=== PATIENT | male | born 1950 | race Caucasian/White ===

== ENCOUNTER 2018-06-04 19:07 | Emergency (ER) | payer BC, MEDICARE ==
[2018-06-04 19:42] LABS: Hemoglobin 17.5 g/dL (14.0-18.0); Mean Corpuscular HGB CONC 33.2 g/dL (32.0-36.0); Mean Corpuscular Hemoglobin 30.1 pg (27.0-31.0); Mean Corpuscular Volume 90.5 fL (78.0-98.0); Mean Platelet Volume 7.7 fL (7.4-10.4); Platelet Count 194 thou/uL (130-400); RBC Distribution Width 12.1 % (11.5-14.5); Red Blood Cell (RBC) Count 5.84 mill/uL (4.70-6.10); White Blood Cell (WBC) Count 12.6 thou/uL (4.8-10.8)
[2018-06-04 19:45] LABS: Bilirubin Small (Negative); Blood, Urine Trace (Negative); Clarity CLEAR (Clear); Glucose, Urine (Dipstick) Negative (Negative); Leukocyte Trace (Negative); Nitrite Negative (Negative); Protein, Urine (Dipstick) 100 mg/dL (Neg-Trace); Specific Gravity, Urine 1.035 (1.002-1.036); Urobilinogen 0.2 mg/dL (0.2-1.0); pH, Urine 5.5 (5.0-9.0)
[2018-06-04 19:47] LABS: Bacteria/HPF None Seen HPF (None Seen); RBC/HPF 0-3 HPF (0-3); Squamous Epithelial 0-3 HPF (0-3); WBC/HPF 0-3 HPF (0-3)
[2018-06-04 19:48] LABS: Pathc Cast-AUWi Flag 2.61 (0-2.49)
[2018-06-04 19:57] LABS: Hyaline Casts/LPF 0-3 HYALINE CAST LPF (0-3 Hyaline); Manual Microscopic Reviewed? No Path Casts Seen
[2018-06-04 20:00] LABS: ALT (SGPT) 20 U/L (8-55); AST (SGOT) 18 U/L (5-34); Albumin 4.8 g/dL (3.4-4.8); Alkaline Phosphatase 76 U/L (40-150); Anion Gap 16 mmol/L (10-20); BUN (Urea Nitrogen) 19 mg/dL (8.4-25.7); Bilirubin, Total 1.7 mg/dL (0.2-1.2); Calc. Creatinine Clearance 0 mL/min (70-130); Calcium 9.5 mg/dL (7.8-10.44); Carbon Dioxide 22 mmol/L (23-31); Chloride 103 mmol/L (98-107); Estimated GFR-MDRD 52; Globulin 3.4 g/dL (2.4-3.5); Glucose 114 mg/dL (80-115); Protein, Total 8.2 g/dL (5.8-8.1); Sodium 138 mmol/L (136-145)
[2018-06-04 20:02] LABS: MDiff Complete? YES
[2018-06-04 20:03] LABS: Band 27 % (5-11); Lymphocytes 8 % (21-51); Monocytes 3 % (0-10); Neutrophil 62 % (42-75); PLT Morphology Comment Appears Adequate
[2018-06-04] MEDS ORDERED: Ondansetron HCl/PF 4 MG/2 ML Vial ONE (21:53)
[2018-06-04] MEDS ORDERED: Famotidine/PF 20 mg/2ml Vial ONE (21:53)
[2018-06-04] MEDS ORDERED: Metoclopramide HCl 10 MG/2 ML VIAL ONE (21:53)
--- NOTE | 2018-06-04 22:14 | RAD ---
AP VIEW CHEST: SUPINE AND UPRIGHT VIEWS ABDOMEN: HISTORY: Evaluate for bowel obstruction. Patient with abdominal pain. TECHNIQUE: AP view of the chest, as well as supine and upright views of the abdomen, are obtained. FINDINGS: There is an area of radiopaque density overlying the proximal trachea. This may be external to the p atient or may be within the neck. I do recommend having the patient evaluated clinically. If no def inite radiopaque density is seen external to the patient, then AP and lateral views of the neck, for soft tissue evaluation, are recommended. The chest radiograph is unremarkable, otherwise, with no evidence of acute intrathoracic abnormality seen. Supine and upright views of the abdomen demonstrate some air-fluid levels seen in the ascending colon . There may be some additional fluid in the descending colon. No dilated loops of small bowel seen. Gas is seen throughout the colon. No evidence of free intraperitoneal air is seen. Gas is seen in the gastric air bubble. IMPRESSION: 1. Possible upper tracheal radiopaque density versus foreign body external to the patient. 2. The lungs are well aerated. 3. Air-fluid level seen in the colon on the upright view. POS: [facility]
[2018-06-04] MEDS ORDERED: Baclofen 10 MG TAB PO SCH (22:45)
== END 2018-06-04 23:10 | disposition home or self-care (01) ==
LOC: ERS 19:07
DX: R11.2 Nausea with vomiting, unspecified (principal); R19.7 Diarrhea, unspecified; R06.6 Hiccough; K21.9 Gastro-esophageal reflux disease without esophagitis; E78.5 Hyperlipidemia, unspecified; F17.210 Nicotine dependence, cigarettes, uncomplicated; Z79.82 Long term (current) use of aspirin; Z79.899 Other long term (current) drug therapy
CPT/HCPCS: 36415; 74022; 80053; 81003; 81015; 83690; 85025; 87045; 87046; 87324; 87449; 87899; 96361; 96374; 96375; J2405; J2765; S0028

== ENCOUNTER 2023-11-15 10:10 | Outpatient (CLI) | payer BC | END 2023-11-15 10:11 | disposition home or self-care (01) | LOC: BICRAD 10:10 | PROVIDERS: ATTEND Internal Medicine | DX: M54.2 Cervicalgia (principal); M25.512 Pain in left shoulder; M25.511 Pain in right shoulder; M19.012 Primary osteoarthritis, left shoulder; M47.812 Spondylosis without myelopathy or radiculopathy, cervical region; Z98.1 Arthrodesis status | CPT/HCPCS: 72040 ==